=== PATIENT | female | born 1960 | race Caucasian/White ===

== ENCOUNTER 2022-04-23 12:54 | Inpatient (IN) | payer BC ==
[~2022-04-23] VITALS: Ht 157.5 cm; Wt 51.3 kg
--- NOTE | 2022-04-23 13:12 | NUR ---
To ER bed 4, BIB Family "fall down- left elbow pain", aaox3, breathing even and non labored, connected to monitor, awaiting md orders
[2022-04-23] MEDS ORDERED: ONDANSETRON HCL/PF 4 MG/2 ML VIAL ONE ×2 (13:21→17:49)
[2022-04-23] MEDS ORDERED: MORPHINE SULFATE INJ 4 MG/ML DISP.SYRIN ONE (13:22)
[2022-04-23] MEDS ORDERED: MULT-447 PO (13:25)
[2022-04-23] MEDS ORDERED: MORPHINE SULFATE INJ 2 MG/ML DISP.SYRIN IV ONE (13:30)
[2022-04-23] MEDS ORDERED: ONDANSETRON HCL/PF 4 MG/2 ML VIAL IV ONE (13:30)
--- NOTE | 2022-04-23 13:45 | NUR ---
STRETCHER LEVELER OPERATOR HELPER AT BEDSIDE FOR XRAY
[2022-04-23] MEDS ORDERED: HYDROMORPHONE 1 MG/1 ML DISP.SYRIN ONE (13:57)
[2022-04-23] MEDS ORDERED: IV NS 0.9% 1,000 ML IV ONE (14:00)
[2022-04-23] MEDS ORDERED: HYDROMORPHONE 1 MG/1 ML DISP.SYRIN IV ONE (14:00)
--- NOTE | 2022-04-23 14:33 | NUR ---
COVID SWAB DONE AND SENT TO LAB
[2022-04-23 14:47] LABS: BASOPHILS % (AUTO) 0.2 % (0.0-2.0); EOSINOPHILS % (AUTO) 0.1 % (0.0-6.0); HEMATOCRIT 36 % (33-45); HEMOGLOBIN 11.9 g/dL (11.5-14.8); LYMPHOCYTES # (AUTO) 1.1 K/uL (0.8-4.8); LYMPHOCYTES % (AUTO) 10.3 % (20.0-44.0); MEAN CORPUSCULAR HGB CONC 33 g/dl (31.0-36.0); MEAN CORPUSCULAR VOLUME 96 fL (82-100); MONOCYTES # (AUTO) 0.8 K/uL (0.1-1.30); MONOCYTES % (AUTO) 7.5 % (2.0-12.0); NEUTROPHILS # (AUTO) 8.4 K/uL (1.8-8.9); NEUTROPHILS % (AUTO) 81.9 % (43.0-81.0); PLATELET COUNT (AUTO) 199 K/uL (150-450); RED BLOOD CELL COUNT(AUTO) 3.74 MIL/uL (4.0-5.2); WHITE BLOOD COUNT (AUTO) 10.3 K/uL (4.3-11.0)
[2022-04-23 14:53] LABS: CALCIUM, SERUM 8.7 mg/dL (8.5-10.1); CREATININE 0.8 mg/dL (0.6-1.3)
--- NOTE | 2022-04-23 14:59 | NUR ---
[facility] CALLED SMOKE ROOM OPERATOR PAGED.
[2022-04-23] MEDS ORDERED: KETAMINE HCL (500MG/10ML) 50 MG/ML VIAL IV ONE ×2 (15:30→16:30)
[2022-04-23] MEDS ORDERED: KETAMINE HCL (500MG/10ML) 50 MG/ML VIAL ONE (15:35)
[2022-04-23] MEDS: ENOXAPARIN SODIUM 40 MG/0.4 ML DISP.SYRIN SQ SCH (17:00)
--- NOTE | 2022-04-23 17:03 | NUR ---
TAKEN TO CT VIA JAYCEE
[2022-04-23] MEDS ORDERED: MORPHINE SULFATE INJ 2 MG/ML DISP.SYRIN ONE (17:24)
[2022-04-23] MEDS: MORPHINE SULFATE INJ 2 MG/ML DISP.SYRIN IV PRN ×2 (17:28→22:32)
[2022-04-23] MEDS: ONDANSETRON HCL/PF 4 MG/2 ML VIAL IVP PRN (17:52)
[2022-04-23] MEDS ORDERED: ENOXAPARIN SODIUM 40 MG/0.4 ML DISP.SYRIN SQ ONE (18:30)
--- NOTE | 2022-04-23 19:43 | NUR ---
RECEIVED REPORT FROM WARREN GLYNN. PATIENT CAME WITH CC OF PAIN ON LEFT ELBOW AFTER A FALL. PATIENT IS AAOX4 AND ABLE TO MAKE NEEDS KNOWN. NO PAIN AT THE MOMENT. RECEIVED WITH LEFT ELBOW CAST AND SLING. WITH IV JESUS ON RIGHT AC G20. VITALS CHECKED.
--- NOTE | 2022-04-23 19:52 | NUR ---
REPORT GIVEN TO WARREN COBOS.
[2022-04-23 20:00] VITALS: BP 120/78
--- NOTE | 2022-04-23 20:00 | NUR ---
RN NOTE PT ARRIVED TO UNIT PT A/O X4 ABLE TO WALK TO BED PT NOTED WITH STEADY GAIT. PT NOTED WITH SLING ON THE L ARM. PT REPORTING 6/10 PAIN ON A NUMERIC PAIN SCALE NO PAIN MANAGEMENT AT THIS TIME. PT NOTED WITH IV ACCESS ON THE RAC#20G FLUSHING WELL. PT CONNECTED TO IV FLUIDS NS 275ML/HR RUINING WELL. PT TO BE NPO AFTER MIDNIGHT FOR POSSIBLE SX TOMORROW PT AWARE.
--- NOTE | 2022-04-23 23:00 | NUR ---
RN NOTE PRN MORPHINE GIVEN FOR 910 TOLERATED WELL.
[2022-04-24] MEDS: MORPHINE SULFATE INJ 2 MG/ML DISP.SYRIN IV PRN ×3 (05:52→20:32)
[2022-04-24] MEDS: IV NS 0.9% 1,000 ML IV PRN (05:53)
--- NOTE | 2022-04-24 06:00 | NUR ---
RN NOTE PRN MORPHINE GIVEN FOR 910 TOLERATED WELL.
[2022-04-24 06:22] LABS: BASOPHILS % (AUTO) 0.5 % (0.0-2.0); EOSINOPHILS % (AUTO) 0.3 % (0.0-6.0); HEMATOCRIT 34 % (33-45); HEMOGLOBIN 11.3 g/dL (11.5-14.8); LYMPHOCYTES # (AUTO) 1.5 K/uL (0.8-4.8); LYMPHOCYTES % (AUTO) 30.4 % (20.0-44.0); MEAN CORPUSCULAR HGB CONC 33 g/dl (31.0-36.0); MEAN CORPUSCULAR VOLUME 96 fL (82-100); MONOCYTES # (AUTO) 0.6 K/uL (0.1-1.30); MONOCYTES % (AUTO) 11.4 % (2.0-12.0); NEUTROPHILS # (AUTO) 2.8 K/uL (1.8-8.9); NEUTROPHILS % (AUTO) 57.4 % (43.0-81.0); PLATELET COUNT (AUTO) 178 K/uL (150-450); RED BLOOD CELL COUNT(AUTO) 3.56 MIL/uL (4.0-5.2); WHITE BLOOD COUNT (AUTO) 4.9 K/uL (4.3-11.0)
[2022-04-24 06:26] LABS: CALCIUM, SERUM 8.6 mg/dL (8.5-10.1); CREATININE 0.8 mg/dL (0.6-1.3); MAGNESIUM 1.9 mg/dL (1.8-2.4); PHOSPHORUS 3.7 mg/dL (2.5-4.9); POTASSIUM 3.8 mmol/L (3.5-5.1)
--- NOTE | 2022-04-24 06:53 | NUR ---
RN NOTE PT ARRIVED TO UNIT PT A/O X4 ABLE TO WALK TO BED PT NOTED WITH STEADY GAIT. PT NOTED WITH SLING ON THE L ARM. PT REPORTING 6/10 PAIN ON A NUMERIC PAIN SCALE NO PAIN MANAGEMENT AT THIS TIME. PT NOTED WITH IV ACCESS ON THE RAC#20G FLUSHING WELL. PT CONNECTED TO IV FLUIDS NS 275ML/HR RUINING WELL. PT TO BE NPO AFTER MIDNIGHT FOR POSSIBLE SX TODAY PT AWARE. PAIN MANAMGMENT PROVIDED WITH PRN MORPHINE 2MG TOLERATED WELL.
[2022-04-24 07:00] VITALS: BP 123/74
--- NOTE | 2022-04-24 07:14 | NUR ---
RT EKG order [facility] [place] time 0645 not done. MD Lama not aware EKG done 30min prior. Previous EKG done by noc shift and given to WARREN Mercado.
[2022-04-24 08:22] LABS: THYROID STIMULATING HORMONE 0.646 uIU/mL (0.358-3.74)
--- NOTE | 2022-04-24 10:46 | NUR ---
RN NOTES SURGERY SCHEDULED FOR TODAY HAS BEEN CANCELLED AT THIS TIME, THE NPO ORDER IS CANCELLED UNTIL FURTHER ORDERS. PT TAKEN TO RESTROOM 1 VOID BROWN YELLOW VOID NO FOUL ODOR NOTED 200 ML, PT REPOSITIONED AND MADE COMFORTABLE, ALL SAFETY MEASURES IN PLACE, ALL BED WHEELS LOCKED, BED LOW TO FLOOR, CALL LIGHT IN REACH, WATER AT BED SIDE, NUTRITION / KITCHEN NOTIFIED TO BRING LUNCH TRAY .
[2022-04-24] MEDS: HYDROCODONE/APAP 5/325MG TABLET PO PRN (13:20)
--- NOTE | 2022-04-24 13:25 | NUR ---
RN NOTES PT REQUESTED PAIN MEDICATION FOR ARM, GIVEN MORPHINE IV PUSH
--- NOTE | 2022-04-24 13:25 | NUR ---
RN NOTES APPROXIMATELY 15-20 AFTER GIVEN MORPHINE PT REQUESTED THE PRN HYDROCODONE FOR PAIN IN HER ARM LEVEL 4 , GIVEN PO, PT RESTING PEACEFULL AT THIS TIME ENCOURAGED TO DRINK WATER AND PROVIDED FRESH PITCHER OF WATER AND ICE
[2022-04-24] MEDS: ACETAMINOPHEN 325 MG TABLET PO PRN (13:53)
[2022-04-24] MEDS: ENOXAPARIN SODIUM 40 MG/0.4 ML DISP.SYRIN SQ SCH (16:10)
--- NOTE | 2022-04-24 18:22 | NUR ---
RN CLOSING NOTES ; PT A/O X4 ABLE TO AMBULATE WITH ONE PERSON ASSIST FOR SAFETY TO REST ROOM, PT NOTED WITH SLING ON THE L ARM INTACT . PT REPORTING 9/10 PAIN GIVEN MORPHINE PRN MED Q 4 HOURS TO HELP RELIEVE THE PAIN, SWELLING NOTED ON LEFT HAND AND ARM NORMAL FOR THIS DIAGNOSIS AND EXPLAINED THIS TO PT, IV ACCESS ON THE RA/C#20G FLUSHING WELL AND RUNNING THE NS ORDER PT CONNECTED TO IV FLUIDS NS 275ML/HR RUINING WELL. THE SURGERY WAS RESCHEDULED AND THE NPO ORDER WAS D/C AND THE ORDER FOR REGULAR DIET WAS PLACED INTO THE ORDERS. KITCHEN/ NUTRITION AWARE AND TRAYS WILL BE GIVEN TO HER TOMORROW FOR MEALS.
--- NOTE | 2022-04-24 19:30 | NUR ---
MS RN OPENING NOTE RECEIVED PT AWAKE IN BED. PT STABLE ON ROOM AIR. NO SOB OR S/S OF RESPIRATORY DISTRESS. BREATHING EVEN AND UNLABORED. IV ACCESS RAC 20G, INTACT AND PATENT, RUNNING NS @ 60 ML/HR. SAFETY PRECAUTIONS IN PLACE. BED IN LOWEST LOCKED POSITION, HOB ELEVATED, SIDE RAILS UP X2, AND CALL LIGHT AND TABLE WITHIN REACH. ALL NEEDS MET AT THIS TIME.
[2022-04-24 20:00] VITALS: BP 125/81
--- NOTE | 2022-04-24 20:32 | NUR ---
RN NOTE PT COMPLAINED OF PAIN 01/04 OF L ARM. ADMINISTERED MORPHINE 2 MG FOR SEVERE PAIN. MADE COMFORTABLE IN BED. ALL NEEDS MET AT THIS TIME.
[2022-04-25] MEDS: MORPHINE SULFATE INJ 2 MG/ML DISP.SYRIN IV PRN ×3 (01:03→20:05)
[2022-04-25] MEDS: IV NS 0.9% 1,000 ML IV PRN (04:22)
--- NOTE | 2022-04-25 07:00 | NUR ---
MS RN CLOSING NOTE PT AWAKE IN BED. PT STABLE ON ROOM AIR. NO SOB OR S/S OF RESPIRATORY DISTRESS. BREATHING EVEN AND UNLABORED. IV ACCESS RAC 20G, INTACT AND PATENT, RUNNING NS @ 60 ML/HR. ALL DUE MEDS GIVEN ORDERED. SAFETY PRECAUTIONS IN PLACE AT ALL TIMES. BED IN LOWEST LOCKED POSITION, HOB ELEVATED, SIDE RAILS UP X2, AND CALL LIGHT AND TABLE WITHIN REACH. ALL NEEDS MET AT THIS TIME AND WILL ENDORSE TO ONCOMING NURSE FOR SON.
--- NOTE | 2022-04-25 07:00 | NUR ---
MS RN OPENING NOTE RECEIVED PT AWAKE IN BED. PT STABLE ON ROOM AIR. PT COMMUNICATIVE & COOPERATIVE. NO SOB OR S/S OF RESPIRATORY DISTRESS. BREATHING EVEN AND UNLABORED. SAFETY PRECAUTIONS IN PLACE. BED IN LOWEST LOCKED POSITION, HOB ELEVATED, SIDE RAILS UP X2, AND CALL LIGHT AND TABLE WITHIN REACH. ALL NEEDS MET AT THIS TIME.
[2022-04-25 08:00] VITALS: BP 119/59
--- NOTE | 2022-04-25 08:17 | NUR ---
RN MS NOTES ENDORSED CARE OF PT TO CORNELIO KELLEY.
[2022-04-25] MEDS: ONDANSETRON HCL/PF 4 MG/2 ML VIAL IVP PRN (09:25)
[2022-04-25] MEDS: HYDROCODONE/APAP 5/325MG TABLET PO PRN (13:47)
[2022-04-25 16:00] VITALS: BP 115/72
[2022-04-25] MEDS: ENOXAPARIN SODIUM 40 MG/0.4 ML DISP.SYRIN SQ SCH (17:08)
--- NOTE | 2022-04-25 19:12 | NUR ---
MS RN CLOSING NOTE PT AWAKE IN BED A/0X4, PT STABLE ON ROOM AIR. NO SOB OR S/S OF RESPIRATORY DISTRESS. BREATHING EVEN AND UNLABORED. IV ACCESS RAC 20G, INTACT AND PATENT, RUNNING NS @ 60 ML/HR. ALL DUE MEDS GIVEN ORDERED. SAFETY PRECAUTIONS IN PLACE AT ALL TIMES. BED IN LOWEST LOCKED POSITION, HOB ELEVATED, SIDE RAILS UP X2, AND CALL LIGHT AND TABLE WITHIN REACH. ALL NEEDS MET AT THIS TIME AND WILL ENDORSE TO ONCOMING NURSE FOR SON.
--- NOTE | 2022-04-25 19:21 | NUR ---
MS RN OPENING NOTE RECEIVED PT AWAKE IN BED. A/0 X4, PT STABLE ON ROOM AIR. NO SOB OR S/S OF RESPIRATORY DISTRESS. BREATHING EVEN AND UNLABORED. DENIES PAIN AT THE MOMENT. IV ACCESS RAC 20G, INTACT AND PATENT, RUNNING NS @ 60 ML/HR. SAFETY PRECAUTIONS IN PLACE AT ALL TIMES. BED IN LOWEST LOCKED POSITION, HOB ELEVATED, SIDE RAILS UP X2, AND CALL LIGHT AND TABLE WITHIN REACH. WILL CONTINUE TO MONITOR AND ASSIST.
[2022-04-25 20:00] VITALS: BP 129/81
[2022-04-26] MEDS: MORPHINE SULFATE INJ 2 MG/ML DISP.SYRIN IV PRN ×4 (01:26→20:16)
[2022-04-26 06:15] LABS: BASOPHILS % (AUTO) 0.4 % (0.0-2.0); EOSINOPHILS % (AUTO) 0.4 % (0.0-6.0); HEMATOCRIT 35 % (33-45); HEMOGLOBIN 11.8 g/dL (11.5-14.8); LYMPHOCYTES # (AUTO) 1.7 K/uL (0.8-4.8); LYMPHOCYTES % (AUTO) 29.5 % (20.0-44.0); MEAN CORPUSCULAR HGB CONC 33 g/dl (31.0-36.0); MEAN CORPUSCULAR VOLUME 95 fL (82-100); MONOCYTES # (AUTO) 0.7 K/uL (0.1-1.30); MONOCYTES % (AUTO) 12.5 % (2.0-12.0); NEUTROPHILS # (AUTO) 3.3 K/uL (1.8-8.9); NEUTROPHILS % (AUTO) 57.2 % (43.0-81.0); PLATELET COUNT (AUTO) 157 K/uL (150-450); RED BLOOD CELL COUNT(AUTO) 3.72 MIL/uL (4.0-5.2); WHITE BLOOD COUNT (AUTO) 5.8 K/uL (4.3-11.0)
[2022-04-26 06:21] LABS: CALCIUM, SERUM 8.2 mg/dL (8.5-10.1); CREATININE 0.6 mg/dL (0.6-1.3); MAGNESIUM 1.7 mg/dL (1.8-2.4); PHOSPHORUS 3.8 mg/dL (2.5-4.9); POTASSIUM 3.8 mmol/L (3.5-5.1)
--- NOTE | 2022-04-26 07:23 | NUR ---
MS RN CLOSING NOTE PT AWAKE IN BED. A/0 X4, STABLE ON ROOM AIR. NO SOB OR S/S OF RESPIRATORY DISTRESS. BREATHING EVEN AND UNLABORED. IV ACCESS RAC 20G, INTACT AND PATENT, RUNNING NS @ 60 ML/HR. STATED PAIN THROUGHOUT SHIFT AND PROVIDED MORPHINE 2MG/ML PRESCRIBED. ALL CARE PROVIDED. SAFETY PRECAUTIONS MAINTAINED: BED IN LOWEST LOCKED POSITION, HOB ELEVATED, SIDE RAILS UP X2, AND CALL LIGHT AND TABLE WITHIN REACH. WILL ENDORSE SON TO STRATEGIC ACCOUNT EXECUTIVE NURSE.
[2022-04-26 08:00] VITALS: BP 118/72
[2022-04-26] MEDS ORDERED: MAGNESIUM OXIDE 400 MG TABLET PO ONE (11:00)
[2022-04-26] MEDS: ACETAMINOPHEN 325 MG TABLET PO PRN (13:19)
[2022-04-26 16:00] VITALS: BP 116/72
[2022-04-26] MEDS: ENOXAPARIN SODIUM 40 MG/0.4 ML DISP.SYRIN SQ SCH (17:27)
--- NOTE | 2022-04-26 19:38 | NUR ---
MS RN CLOSING NOTE PT AWAKE IN BED. A/0 X4, STABLE ON ROOM AIR. NO SOB OR S/S OF RESPIRATORY DISTRESS. BREATHING EVEN AND UNLABORED. IV ACCESS RAC 20G, INTACT AND PATENT, RUNNING NS @ 60 ML/HR. STATED PAIN THROUGHOUT SHIFT AND PROVIDED MORPHINE 2MG/ML PRESCRIBED. ALL CARE PROVIDED. SAFETY PRECAUTIONS MAINTAINED: BED IN LOWEST LOCKED POSITION, HOB ELEVATED, SIDE RAILS UP X2, AND CALL LIGHT AND TABLE WITHIN REACH. WILL ENDORSE SON TO WATER AND SEWER SYSTEMS SUPERINTENDENT NURSE.
--- NOTE | 2022-04-26 19:40 | NUR ---
MS RN OPENING NOTES RECEIVED PATIENT LAYING IN BED AWAKE. A/O X4. BREATHING EVEN AND NON-LABORED ON ROOM AIR. NOT IN APPARENT DISTRESS. C/O MODERATE PAIN ON HER LEFT ARM. HAS RIGHT ANTECUBITAL IV ACCESS #20G WITH NS RUNNING AT 60 ML/HR. NO S/S OF INFILTRATION NOTED. LEFT ARM SLING IN PLACE. SAFETY PRECAUTIONS IN PLACE: BED LOW AND LOCKED, SIDE RAILS UP X2, CALL LIGHT WITHIN REACH. WILL CONTINUE POC.
[2022-04-26 20:00] VITALS: BP 113/59
--- NOTE | 2022-04-26 20:30 | NUR ---
MS RN NOTES PATIENT C/O LEFT ARM PAIN 8/10. ADMINISTERED PRN MORPHINE, TOLERATED WELL.
[2022-04-27] VITALS (10 sets, daily range): BP systolic 115–129; BP diastolic 67–85
[2022-04-27] MEDS: MORPHINE SULFATE INJ 2 MG/ML DISP.SYRIN IV PRN ×3 (02:29→23:43)
--- NOTE | 2022-04-27 02:30 | NUR ---
MS RN NOTES PATIENT C/O LEFT ARM PAIN 8/10. ADMINISTERED PRN MORPHINE, TOLERATED WELL.
[2022-04-27] MEDS: IV NS 0.9% 1,000 ML IV PRN (04:25)
[2022-04-27 06:46] LABS: BASOPHILS % (AUTO) 0.5 % (0.0-2.0); EOSINOPHILS % (AUTO) 1.3 % (0.0-6.0); HEMATOCRIT 35 % (33-45); HEMOGLOBIN 11.6 g/dL (11.5-14.8); LYMPHOCYTES # (AUTO) 1.4 K/uL (0.8-4.8); LYMPHOCYTES % (AUTO) 31.5 % (20.0-44.0); MEAN CORPUSCULAR HGB CONC 34 g/dl (31.0-36.0); MEAN CORPUSCULAR VOLUME 95 fL (82-100); MONOCYTES # (AUTO) 0.6 K/uL (0.1-1.30); NEUTROPHILS # (AUTO) 2.4 K/uL (1.8-8.9); NEUTROPHILS % (AUTO) 52.7 % (43.0-81.0); PLATELET COUNT (AUTO) 160 K/uL (150-450); RED BLOOD CELL COUNT(AUTO) 3.62 MIL/uL (4.0-5.2); WHITE BLOOD COUNT (AUTO) 4.6 K/uL (4.3-11.0)
[2022-04-27 06:50] LABS: CALCIUM, SERUM 8.3 mg/dL (8.5-10.1); CREATININE 0.6 mg/dL (0.6-1.3); MAGNESIUM 1.9 mg/dL (1.8-2.4); PHOSPHORUS 4.3 mg/dL (2.5-4.9)
--- NOTE | 2022-04-27 07:00 | NUR ---
MS RN CLOSING NOTES PATIENT LAYING IN BED AWAKE. STABLE THROUGHOUT THE SHIFT. VERBALIZED HER LEFT ARM PAIN HAS IMPROVED. AFEBRILE. RIGHT ANTECUBITAL IV ACCESS #20G INTACT, PATENT AND FLUSHING. PRE-OP CHECKLIST DONE. STILL ON NPO. SAFETY PRECAUTIONS MAINTAINED. WILL ENDORSE TO NEXT SHIFT FOR SON.
--- NOTE | 2022-04-27 07:20 | NUR ---
MS RN OPENING NOTES RECEIVED PATIENT AWAKE IN BED IN NO ACUTE SIGNS OF DISTRESS. A/O X4. ABLE TO VERBALIZED NEEDS, NO C/O PAIN OR DISCOMFORTS AT THIS TIME. PT FOR ORIF OF LEFT HUMERUS TODAY, WILL MAINTAIN PT ON NPO EXCEPT MEDS. BREATHING EVEN AND NON-LABORED ON ROOM AIR. IV ACCESS ON RIGHT ANTECUBITAL #20G INTACT WITH IVF OF NS RUNNING AT 60 ML/HR, NO S/S OF INFILTRATION NOTED. LEFT ARM SLING IN PLACE. SAFETY PRECAUTIONS IN PLACE: BED IN LOWEST LOCKED POSITION, SIDE RAILS UP X2 AND CALL LIGHT WITHIN REACH. WILL CONTINUE POC.
[2022-04-27] MEDS ORDERED: POLYMYXIN B SULFATE 0 UNITS ONE (11:29)
[2022-04-27] MEDS ORDERED: BUPIVACAINE 0.25% 75 MG/30 ML VIAL ONE (11:29)
[2022-04-27] MEDS ORDERED: VANCOMYCIN 1 GM VIAL ONE (11:29)
[2022-04-27] MEDS ORDERED: HYDROMORPHONE INJ 2 MG/ML DISP.SYRIN ONE ×2 (13:36→17:47)
[2022-04-27] MEDS ORDERED: ROCURONIUM BROMIDE 50 MG/5 ML ONE ×2 (13:36→14:34)
[2022-04-27] MEDS: ENOXAPARIN SODIUM 40 MG/0.4 ML DISP.SYRIN SQ SCH (17:00)
--- NOTE | 2022-04-27 18:38 | NUR ---
RN NOTES PATIENT RETURNED TO UNIT @ 1830 ACCOMPANIED BY Cirilo HERMAN S/P ORIF OF LEFT ELBOW FRACTURE BY DR GREY. PT IS AWAKE, A/O X3/4 AND ABLE TO MAKE NEEDS KNOWN, VERBALIZED THAT PAIN ON HER OPERATIVE SITE IS TOLERABLE AT THIS TIME. PT WITH HALF CAST SPLINT LEFT ARM WITH DRESSING IN PLACE WRAPPED WITH TERELL BANDAGE. LEFT HAND SWOLLEN AND ABLE TO MOVE FINGERS. ALL POST-OP ORDERS RECEIVED AND WILL CARRY OUT.
--- NOTE | 2022-04-27 18:54 | NUR ---
MS RN CLOSING NOTES PATIENT IN BED AWAKE AT THIS TIME. HOB ELEVATED. PT IS A/O X4. ABLE TO VERBALIZED NEEDS. S/P ORIF OF LEFT ELBOW FRACTURE WITH HALF CAST SPLINT ON LEFT ARM WITH DRESSING IN PLACE WRAPPED WITH TERELL BANDAGE. PT BREATHING EVEN AND NON-LABORED ON ROOM AIR. IV ACCESS ON RIGHT AC #20G INTACT WITH IVF OF NS RUNNING AT 60 ML/HR, NO S/S OF INFILTRATION NOTED. ALL NEEDS CARE ATTENDED WELL. SAFETY PRECAUTIONS IN PLACE: BED IN LOWEST LOCKED POSITION, SIDE RAILS UP X2 AND CALL LIGHT WITHIN REACH. WILL ENDORSE SON TO GAG WRITER NURSE.
--- NOTE | 2022-04-27 19:10 | NUR ---
MS RN OPENING NOTES RECEIVED PATIENT LAYING IN BED AWAKE, FAMILY ON BEDSIDE. A/O X4. BREATHING EVEN AND NON-LABORED ON ROOM AIR. NOT IN APPARENT DISTRESS. C/O LEFT ARM PAIN 03/06. HAS RIGHT ANTECUBITAL IV ACCESS #20G WITH NS RUNNING AT 60 ML/HR. NO S/S OF INFILTRATION NOTED. LEFT ARM DRESSING DRY AND INTACT. SAFETY PRECAUTIONS IN PLACE: BED LOW AND LOCKED, SIDE RAILS UP X2, CALL LIGHT WITHIN REACH. WILL CONTINUE POC.
--- NOTE | 2022-04-27 19:30 | NUR ---
MS RN NOTES ADMINISTERED PRN MORPHINE SULFATE TO PATIENT FOR HER LEFT ARM PAIN, TOLERATED WELL.
[2022-04-27] MEDS: HYDROCODONE/APAP 5/325MG TABLET PO PRN (20:15)
--- NOTE | 2022-04-27 20:15 | NUR ---
MS RN NOTES PATIENT HAD SOME RELIEF FROM MORPHINE AND REQUESTED PRN NORCO 5-325. DISCUSSED POC WITH PATIENT AND , VERBALIZED UNDERSTANDING. WILL CONTINUE PAIN MANAGEMENT DURING SHIFT.
--- NOTE | 2022-04-27 23:45 | NUR ---
MS RN NOTES PATIENT C/O LEFT ARM PAIN, DESCRIBED IT LIKE "REALLY TIGHT". LEFT HAND EDEMA ALSO NOTED. APPLIED COLD COMPRESS AND ADMINISTERED PRN MORPHINE 2MG.
[2022-04-28] MEDS: HYDROCODONE/APAP 5/325MG TABLET PO PRN ×3 (00:35→10:50)
--- NOTE | 2022-04-28 00:36 | NUR ---
MS RN NOTES PRN NORCO 5-325 GIVEN TO PATIENT TO RELIEVE LEFT ARM PAIN S/P ORIF.
[2022-04-28] MEDS: MORPHINE SULFATE INJ 2 MG/ML DISP.SYRIN IV PRN ×5 (04:21→20:57)
[2022-04-28] MEDS: IV NS 0.9% 1,000 ML IV PRN (04:28)
--- NOTE | 2022-04-28 04:35 | NUR ---
MS RN NOTES PATIENT C/O LEFT ARM PAIN 10/10, DESCRIBED IT LIKE "REALLY HEAVY". ADMINISTERED PRN MORPHINE SULFATE 2MG.
--- NOTE | 2022-04-28 04:59 | NUR ---
MS RN NOTES PATIENT IS CRYING AND DIDN'T HAVE MUCH PAIN RELIEF FROM PRN MORPHINE. GAVE PRN NORCO, WILL CONTINUE TO MONITOR.
[2022-04-28 06:30] LABS: BASOPHILS % (AUTO) 0.1 % (0.0-2.0); EOSINOPHILS % (AUTO) 0.1 % (0.0-6.0); HEMATOCRIT 30 % (33-45); HEMOGLOBIN 10.1 g/dL (11.5-14.8); LYMPHOCYTES # (AUTO) 1.4 K/uL (0.8-4.8); MEAN CORPUSCULAR HGB CONC 34 g/dl (31.0-36.0); MEAN CORPUSCULAR VOLUME 96 fL (82-100); MONOCYTES % (AUTO) 16.1 % (2.0-12.0); NEUTROPHILS # (AUTO) 3.9 K/uL (1.8-8.9); NEUTROPHILS % (AUTO) 61.7 % (43.0-81.0); PLATELET COUNT (AUTO) 175 K/uL (150-450); RED BLOOD CELL COUNT(AUTO) 3.13 MIL/uL (4.0-5.2); WHITE BLOOD COUNT (AUTO) 6.2 K/uL (4.3-11.0)
--- NOTE | 2022-04-28 06:54 | NUR ---
MS RN CLOSING NOTES PATIENT LAYING IN BED AWAKE. STABLE THROUGHOUT THE SHIFT BUT C/O INCREASED PAIN ON HER LEFT ARM. RIGHT ANTECUBITAL IV ACCESS #20G INTACT, PATENT AND FLUSHING. LEFT ARM SURGICAL DRESSING C/D/I. ALL DUE MEDS GIVEN AND NEEDS ATTENDED. SAFETY PRECAUTIONS MAINTAINED. WILL ENDORSE TO NEXT SHIFT FOR SON.
--- NOTE | 2022-04-28 07:19 | NUR ---
MS RN OPENING NOTES RECEIVED PATIENT AWAKE IN BED.A/O X4. ABLE TO VERBALIZED NEEDS, PT COMPLAINING OF TOLERABLE PAIN FROM HER LEFT HUMERUS SURGERY. BREATHING EVEN AND NON-LABORED ON ROOM AIR. IV ACCESS ON RIGHT ANTECUBITAL #20G INTACT WITH IVF OF NS RUNNING AT 60 ML/HR, NO S/S OF INFILTRATION NOTED. LEFT ARM IN CAST WRAPPED WITH TERELL BANDAGE, ABLE TO WIGGLE FINGERS. SAFETY PRECAUTIONS IN PLACE: BED IN LOWEST LOCKED POSITION, SIDE RAILS UP X2 AND CALL LIGHT WITHIN REACH. WILL CONTINUE TO MONITOR
[2022-04-28 07:21] LABS: CALCIUM, SERUM 8.2 mg/dL (8.5-10.1); CREATININE 0.7 mg/dL (0.6-1.3); MAGNESIUM 1.8 mg/dL (1.8-2.4)
[2022-04-28 08:28] VITALS: BP 121/72
--- NOTE | 2022-04-28 08:43 | NUR ---
RN NOTES: PATIENT C/O PAIN ON HER LEFT UPPER ARM , 10/10 SCALE. MORPHINE 2MG IVP ADMINISTERED AT 0842 . WILL CONTINUE TO MONITOR AND REASSESS PT.
[2022-04-28 09:10] LABS: PHOSPHORUS 4.4 mg/dL (2.5-4.9)
--- NOTE | 2022-04-28 10:52 | NUR ---
RN NOTES: PATIENT C/O PAIN AFTER PHYSICAL EVALUATION AND WAKED WITH THERAPIST THIS MORNING. PT THEN C/O PAIN ON HER LEFT UPPER ARM, 7/10 SCALE. PRN NORCO 5/325 MG PO GIVEN AT 1050. WILL CONTINUE TO MONITOR AND REASSESS PT.
[2022-04-28 11:32] LABS: NEUTROPHILS % (MANUAL) 63 (42-76)
[2022-04-28 11:33] LABS: LYMPHOCYTES % (MANUAL) 27 % (16-48); MONOCYTES % (MANUAL) 10 % (0-11.0)
[2022-04-28] MEDS: ACETAMINOPHEN 325 MG TABLET PO PRN (13:00)
[2022-04-28 16:31] VITALS: BP 127/76
[2022-04-28] MEDS: ENSURE ENLIVE 237 ML LIQUID (VANILLA) PO SCH (17:00)
--- NOTE | 2022-04-28 17:12 | NUR ---
RN NOTE PT COMPLAINING OF PAIN AT IV SITE RIGHT AC. REPLACED IV IN RIGHT FOREARM 20G.
[2022-04-28] MEDS: ENOXAPARIN SODIUM 40 MG/0.4 ML DISP.SYRIN SQ SCH (17:19)
--- NOTE | 2022-04-28 18:48 | NUR ---
RN NOTES PT COMPLAINED THAT HER LEFT HAND SWELLING INCREASING AND PAINFUL, DR GREY MADE AWARE WITH ORDER TO CONTINUE ELEVATING LEFT ARM WITH PILLOWS, APPLY COLD COMPRESS AND PAIN MEDS ORDERED. PT MADE AWARE OF DRS RESPONSE AND SUGGESTIONS.
--- NOTE | 2022-04-28 18:51 | NUR ---
MS RN CLOSING NOTES PATIENT IN BED AWAKE AT THIS TIME. HOB IN SEMI FOWLERS POSITION. PT IS A/O X4. ABLE TO VERBALIZED NEEDS. S/P ORIF OF LEFT ELBOW FRACTURE WITH HALF CAST SPLINT ON LEFT ARM WITH DRESSING IN PLACE WRAPPED WITH TERELL BANDAGE. HAND PROPPED UP ON PILLOW. PT BREATHING EVEN AND NON-LABORED ON ROOM AIR. IV ACCESS ON RIGHT FA #22G INTACT WITH IVF OF NS RUNNING AT 60 ML/HR, NO S/S OF INFILTRATION NOTED. ALL NEEDS CARE ATTENDED WELL. SAFETY PRECAUTIONS IN PLACE: BED IN LOWEST LOCKED POSITION, SIDE RAILS UP X2 AND CALL LIGHT WITHIN REACH. WILL ENDORSE SON TO TRIALS MANAGER NURSE.
--- NOTE | 2022-04-28 19:00 | NUR ---
MS RN OPENING NOTE RECEIVED PATIENT IN BED. ALERT AND ORIENTED, A/O X 4. SHE IS ON RA, BREATHING EVENLY AND NON-LABORED. NO S/S OF SOB OR DISTRESS. HER LEFT HAND AND FOREARM IS ON A SLING. PATIENT'S LEFT ARM IS WRAPPED WITH TERELL BANDAGE; LEFT HAND IS SWELLING WITH NON-PITTING EDEMA. THE BACK OF HER LEFT HAND IS IN BLUEISH COLOR; WARM TO TOUCH AND ABLE TO MAKE MOVES. HER LEFT HAND AND LEFT ARM ARE ELEVATED BY ONE PILLOW. PATIENT STATES THE ICE PACK MAKES HER PAIN WORSE; AND MORPHINE CAN REDUCE HER PAIN. THE DRESSING IS DRY, CLEAN AND INTACT. EDUCATED THE PATIENT TO KEEP HER LEFT HAND AND FOREARM BEING ELEVATED BY THE PILLOW; MOVE HER FINGERS TOLERATED TO PROMOTE THE CIRCULATION. PATIENT VERBALIZED UNDERSTANDING. PATIENT IS ABLE TO VERBALIZE HER NEEDS. IV ACCESS IS ON HER RIGHT FA, #22G, PATENT AND INTACT, RUNNING WITH NS @ 60 ML/HR. SAFETY PRECAUTIONS IN PLACE: BED IN LOWEST AND LOCKED POSITION; SIDE RAILS UP X2; AND CALL RHODES IS WITHIN REACH. INSTRUCT THE PATIENT TO CALL WHEN SHE NEEDS HELP. WILL CONTINUE MONITORING THE PATIENT'S CONDITION, AND PROVIDE THE CARE SHE NEEDS.
[2022-04-29] MEDS: MORPHINE SULFATE INJ 2 MG/ML DISP.SYRIN IV PRN ×3 (01:52→14:04)
[2022-04-29] MEDS: IV NS 0.9% 1,000 ML IV PRN (04:39)
--- NOTE | 2022-04-29 06:43 | NUR ---
MS RN CLOSING NOTE PATIENT IS IN BED SLEEPING. SHE IS ON RA, BREATHING EVENLY AND NON-LABORED. NO S/S OF SOB OR DISTRESS. HER LEFT HAND AND FOREARM IS ON A SLING. PATIENT'S LEFT ARM IS WRAPPED WITH TERELL BANDAGE; LEFT HAND IS SWELLING WITH NON-PITTING EDEMA.THE BACK OF HER LEFT HAND IS IN BLUEISH COLOR; WARM TO TOUCH AND ABLE TO MAKE MOVES WITH HER FINGERS. HER LEFT HAND AND LEFT ARM ARE ELEVATED BY ONE PILLOW. THROUGH THE SHIFT, MORPHINE CAN REDUCE HER PAIN. THE DRESSING IS DRY, CLEAN AND INTACT. EDUCATED THE PATIENT TO KEEP HER LEFT HAND AND FOREARM BEING ELEVATED BY THE PILLOW; MOVE HER FINGERS TOLERATED TO PROMOTE THE CIRCULATION. PATIENT IS ABLE TO VERBALIZE HER NEEDS. IV ACCESS IS ON HER RIGHT FA, #22G, PATENT AND INTACT, RUNNING WITH NS @ 60 ML/HR. SAFETY PRECAUTIONS IN PLACE: BED IN LOWEST AND LOCKED POSITION; SIDE RAILS UP X2; AND CALL RHODES IS WITHIN REACH. INSTRUCT THE PATIENT TO CALL WHEN SHE NEEDS HELP. WILL ENDORSE NEXT SHIFT NURSE FOR CONTINUING PATIENT CARE.
[2022-04-29 06:51] LABS: BASOPHILS % (AUTO) 0.3 % (0.0-2.0); EOSINOPHILS % (AUTO) 0.1 % (0.0-6.0); HEMATOCRIT 30 % (33-45); HEMOGLOBIN 10.1 g/dL (11.5-14.8); LYMPHOCYTES # (AUTO) 1.3 K/uL (0.8-4.8); LYMPHOCYTES % (AUTO) 21.5 % (20.0-44.0); MEAN CORPUSCULAR HGB CONC 34 g/dl (31.0-36.0); MEAN CORPUSCULAR VOLUME 95 fL (82-100); MONOCYTES # (AUTO) 0.8 K/uL (0.1-1.30); MONOCYTES % (AUTO) 14.4 % (2.0-12.0); NEUTROPHILS # (AUTO) 3.7 K/uL (1.8-8.9); NEUTROPHILS % (AUTO) 63.7 % (43.0-81.0); PLATELET COUNT (AUTO) 187 K/uL (150-450); RED BLOOD CELL COUNT(AUTO) 3.14 MIL/uL (4.0-5.2); WHITE BLOOD COUNT (AUTO) 5.8 K/uL (4.3-11.0)
[2022-04-29 07:10] LABS: CALCIUM, SERUM 8.1 mg/dL (8.5-10.1); CREATININE 0.6 mg/dL (0.6-1.3); MAGNESIUM 1.8 mg/dL (1.8-2.4); PHOSPHORUS 3.6 mg/dL (2.5-4.9); POTASSIUM 3.6 mmol/L (3.5-5.1)
--- NOTE | 2022-04-29 07:30 | NUR ---
RN MS NOTES PT IN BED, AWAKE, ALERT AND ORIENTED, COMPLAINS OF LEFT ARM PAIN, DRESSING AND CAST INTACT, SLING AT LEFT ARM IN PLACE, NOTED WITH SWELLING AT LEFT HAND, ENCOURAGED PT TO ELEVATE AND MOVE HER FINGERS TO RELIEVE SWELLING, VERBALIZED UNDERSTANDING, ASSISTED TO BATHROOM.
[2022-04-29 08:00] VITALS: BP 126/79
[2022-04-29] MEDS: ENSURE ENLIVE 237 ML LIQUID (VANILLA) PO SCH ×3 (08:59→16:53)
--- NOTE | 2022-04-29 12:37 | NUR ---
RN MS NOTES LOOSENED UP AND REAPPLIED TERELL WRAP TO LEFT ARM ORDERED, KEPT SLING IN PLACE, ENCOURAGED TO ELEVATE LEFT ARM, VERBALIZED UNDERSTANDING.
[2022-04-29 16:00] VITALS: BP 117/75
[2022-04-29] MEDS: HYDROCODONE/APAP 5/325MG TABLET PO PRN ×2 (16:24→20:33)
[2022-04-29] MEDS: ENOXAPARIN SODIUM 40 MG/0.4 ML DISP.SYRIN SQ SCH (16:49)
--- NOTE | 2022-04-29 18:17 | NUR ---
RN MS NOTES PT IN BED, AWAKE, ALERT AND ORIENTED, NO COMPLAINT AT THIS TIME, RESPIRATIONS NORMAL, CALL LIGHT WITHIN REACH, PAIN MEDS GIVEN FOR PAIN MANAGEMENT, ABLE TO AMBULATE TO THE BATHROOM WITH STANDBY ASSISTANCE, VERBALIZED RELIEF OF LEFT ARM DISCOMFORT AFTER LOOSENING UP THE TERELL BANDAGE, KEPT LEFT ARM ELEVATED WITH PILLOWS AND ENCOURAGED TO MOVE HER FINGERS OF LEFT HAND, COMPLIANT WITH CARE AND INTERVENTIONS.
--- NOTE | 2022-04-29 19:15 | NUR ---
MS RN NOTES RECEIVED ON BED, A/O X4,S/P FALL WHILE HIKING,SUSTAINED LEFT HUMERAL FRACTURE.S/P REPAIR OF LEFT ARM FRACTURE,WITH CAST WRAPPED WITH TERELL BANDAGE.NOTED SWELLING ON LEFT HAND,MD AWARE PER REPORT.TERELL BANDAGE LOOSEN UP,ICE PACK IN PLACE,ELEVATED ON PILLOWS.PAIN TOLERABLE AT THE MOMENT.VISITOR AT BEDSIDE.PRESENT IVF NS AT 60ML/HR RATE IN PROGRESS.SITE PATENT ON RIGHT FORE ARM.AMBULATE WITH STEADY GAIT.CALL LIGHT IN REACH,NEEDS ANTICIPATED.
[2022-04-29 20:00] VITALS: BP 101/70
--- NOTE | 2022-04-29 20:33 | NUR ---
MS RN NOTES PAIN MANAGEMENT C/O PAIN 5/10 ON PAIN SCALE ON LEFT ARM,NORCO 5/325MG,1 TAB PO GIVEN ORDERED.VITAL SIGNS STABLE.
[2022-04-29] MEDS: ACETAMINOPHEN 325 MG TABLET PO PRN (22:58)
--- NOTE | 2022-04-29 22:58 | NUR ---
MS RN NOTES C/O HEADACHE,TYLENOL 650MG PO GIVEN ORDERED.
[2022-04-30] MEDS: HYDROCODONE/APAP 5/325MG TABLET PO PRN ×2 (01:56→09:11)
--- NOTE | 2022-04-30 01:56 | NUR ---
RN NOTES - PAIN PATIENT COMPLAINS OF PAIN AT LEFT ARM, RATED PAIN 5/10, ACHING, FACIAL GRIMACED NOTED. GIVEN NORCO 1 TAB ORALLY. WILL CONTINUE TO MONITOR.
[2022-04-30] MEDS: IV NS 0.9% 1,000 ML IV PRN (05:33)
[2022-04-30] MEDS: ACETAMINOPHEN 325 MG TABLET PO PRN (05:43)
--- NOTE | 2022-04-30 05:43 | NUR ---
MS RN NOTES C/O HEADACHE,TYLENOL 650MG PO GIVEN ORDERED.
--- NOTE | 2022-04-30 06:28 | NUR ---
MS RN NOTES ON BED SLEEPING,EASILY AROUSABLE TO VERBAL STIMULI.UP AND ABOUT TO THE RESTROOM,LEFT REMAINS SWOLLEN,ABLE WIGGLE FINGERS,SLING IN USED.PAIN MANAGEMENT EFFECTIVE,IN NO ACUTE DISTRESS.
[2022-04-30 08:00] VITALS: BP 111/62
[2022-04-30] MEDS: ENSURE ENLIVE 237 ML LIQUID (VANILLA) PO SCH ×2 (08:20→11:38)
[2022-04-30] MEDS ORDERED: OXYC-133 PO (10:09)
--- NOTE | 2022-04-30 12:07 | NUR ---
DISCHARGE NOTE PATIENT IS A/O X4, ON RA SATURATING WELL. L ARM WITH CAST, SLING ON. ABLE TO MAKE NEEDS KNOWN. IV ACCESS REMOVED. DISCHARGE INSTRUCTIONS GIVEN, PT VERBALIZED UNDERSTANDING.
== END 2022-04-30 12:05 | disposition home health service (06) | DRG 494 ==
LOC: ER 13:04 → TRANSITION 16:57 → MED 19:39
PROVIDERS: ADMIT Nurse Practitioner Acute Care; ATTEND Internal Medicine
PROC: 0PSG04Z Reposition Left Humeral Shaft with Internal Fixation Device, Open Approach (ICD-10-PCS; principal; 2022-04-27)
PROC: 01N40ZZ Release Ulnar Nerve, Open Approach (ICD-10-PCS; 2022-04-27)
DX: S42.422A Displaced comminuted supracondylar fracture without intercondylar fracture of left humerus, initial encounter for closed fracture (principal); Z20.822 Contact with and (suspected) exposure to COVID-19; F12.90 Cannabis use, unspecified, uncomplicated; Z88.0 Allergy status to penicillin; D64.9 Anemia, unspecified; W18.30XA Fall on same level, unspecified, initial encounter; E78.5 Hyperlipidemia, unspecified; Y93.01 Activity, walking, marching and hiking; Y92.89 Other specified places as the place of occurrence of the external cause; E83.42 Hypomagnesemia
CPT/HCPCS: 36415; 71045-TC; 73060-TC; 73070-TC; 73080-TC; 73090-TC; 73110; 73200-TC; 80048-TC; 80061-TC; 82728-TC; 83540-TC; 83735-TC; 84100-TC; 84439-TC; 84443-TC; 85025-TC; 85610-TC; 85730-TC; 87081-TC; 93307-TC; 97112-TC; 97116-TC; 97530-TC; A4565; A4649; A6253; A6402; C1713; C9803; G0378; G0500; J0690; J1100; J1170; J1650; J1885; J2270; J2405; J2704; J3370; J3490; J7030